=== PATIENT | female | born 1965 | race Caucasian/White ===

== ENCOUNTER 2017-09-01 14:48 | Emergency (ER) | payer OTHER ==
[~2017-09-01] VITALS: Ht 162.6 cm; Wt 166.0 kg
[2017-09-01 15:00] VITALS: BP 171/84; PULSE 98; RESP 16; TEMP 98.4; O2SAT 97
[2017-09-01] MEDS ORDERED: SIMV10TA PO (15:22)
[2017-09-01] MEDS ORDERED: ZITHTAB PO (15:45)
--- NOTE | 2017-09-01 15:45 | PD ---
HPI Chief Complaint: Allergic/Adverse Reaction Time Seen by Provider: 15:23 Travel History International Travel<30 days: No Contact w/Intl Traveler<30days: No Traveled to known affect area: No History of Present Illness HPI This is a 51-year-old female presents to the ER complaining of earache and allergic reaction. Patient had "sugar substitute" this morning and since then she had vomiting and shortness of breath and went to urgent care. Urgent care evaluated here and give her "a shot" and she felt better but they sent her to the ER for further evaluation. When arrived at the ER patient has no shortness of breath no sore throat no rash and breathing comfortably in room air in no acute distress. Patient states that she feels fine and she wants to go home but she also has ear pain and that L is a reason why she went to the urgent care. PFSH Past Medical History High Cholesterol: Yes COPD: Yes Diminished Hearing: No Thyroid Disease: Yes Tetanus Vaccination: Unknown Influenza Vaccination: No ?: Not Past Surgical History Abdominal Surgery: Yes (gastric bypass) Cholecystectomy: Yes Other Surgery: Yes (breast reduction) Social History Alcohol Use: No Tobacco Use: No Substance Use: No Allergies-Medications (Allergen,Severity, Reaction): Coded Allergies: acetaminophen (Verified Allergy, Severe, TACHYCARDIA, 09/01/17) bee venom protein (honey bee) (Verified Allergy, Severe, TROUBLE BREATHING , 09/01/17) codeine (Verified Allergy, Severe, TROUBLE BREATHING, TACHYCARDIA, 09/01/17) hydrocodone (Verified Allergy, Severe, TACHYCARDIA, 09/01/17) amoxicillin (Verified Allergy, Intermediate, TROUBLE BREATHING, RASH, ) clavulanic acid (Verified Allergy, Intermediate, TROUBLE BREATHING, RASH, 09/01/17) Uncoded Allergies: SUGAR SUBSTITUTE (Allergy, Intermediate, NVD, DIFFICULTY BREATHING, 09/01/17) Reported Meds & Prescriptions Reported Meds & Active Scripts Active Zithromax Z-Jb (Azithromycin) 250 Mg Dspk 250 Mg PO DIRECTED 500 MG (2 tabs) day 1, then 1 tab days 2-5. Reported Simvastatin 10 Mg Tab 10 Mg PO DAILY Review of Systems Except as stated in HPI: all other systems reviewed are Neg Physical Exam Narrative GENERAL: Alert oriented 3 no acute distress SKIN: Focused skin assessment warm/dry. HEAD: Atraumatic. Normocephalic. EYES: Pupils equal and round. No scleral icterus. No injection or drainage. ENT: No nasal bleeding or discharge. Mucous membranes pink and moist. NECK: Trachea midline. No JVD. CARDIOVASCULAR: Regular rate and rhythm. No murmur appreciated. RESPIRATORY: No accessory muscle use. Clear to auscultation. Breath sounds equal bilaterally. GASTROINTESTINAL: Abdomen soft, non-tender, nondistended. Hepatic and splenic margins not palpable. MUSCULOSKELETAL: No obvious deformities. No clubbing. No cyanosis. No edema. NEUROLOGICAL: Awake and alert. No obvious cranial nerve deficits. Motor grossly within normal limits. Normal speech. PSYCHIATRIC: Appropriate mood and affect; insight and judgment normal. Data Data Last Documented VS Vital Signs Date Time Temp Pulse Resp B/P (MAP) Pulse Ox O2 Delivery O2 Flow Rate FiO2 09/01/17 15:00 98.4 98 16 171/84 (113) 97 Orders Orders Ed Discharge Order (09/01/17 15:43) MDM Medical Decision Making Medical Screen Exam Complete: Yes Emergency Medical Condition: Yes Differential Diagnosis Resolved allergic reaction, otitis media Narrative Course This is a 51-year-old female presented to the ER for evaluation of an allergic reaction and ear pain. Patient is not in acute distress and careful physical examination shows no abnormalities, patient is breathing with no problems, no accessory muscle use, speaking full sentences saturation 100% on room air. Patient was monitored at the ER with no changes, patient will be discharged to follow-up with primary. Diagnosis Primary Impression: Allergic reaction Qualified Codes: T78.40XA - Allergy, unspecified, initial encounter Additional Impression: Otitis media Qualified Codes: H66.90 - Otitis media, unspecified, unspecified ear Scripts Azithromycin (Zithromax Z-Jb) 250 Mg Dspk 250 MG PO DIRECTED for Infection, #1 DSPK 0 Refills 500 MG (2 tabs) day 1, then 1 tab days 2-5. Prov: Mundo José MD 09/01/17 Disposition: 01 DISCHARGE HOME Condition: Stable Mundo José MD Sep 01, 2017 15:45
== END 2017-09-01 16:17 | disposition home or self-care (01) ==
LOC: PHED 14:48
DX: T78.40XA Allergy, unspecified, initial encounter (principal); H66.92 Otitis media, unspecified, left ear; R11.10 Vomiting, unspecified; R06.02 Shortness of breath; E78.00 Pure hypercholesterolemia, unspecified; J44.9 Chronic obstructive pulmonary disease, unspecified; E07.9 Disorder of thyroid, unspecified; Z79.899 Other long term (current) drug therapy; Z88.6 Allergy status to analgesic agent
CPT/HCPCS: 99283